=== PATIENT | male | born 1950 | race Caucasian/White ===

== ENCOUNTER 2022-05-04 18:54 | Emergency (ER) | payer MEDICARE, BC ==
[2022-05-04] MEDS ORDERED: Sodium Chloride 0.9% 1,000 ML IV SCH (19:15)
[2022-05-04 19:38] LABS: ESTIMATED GFR 72 mL/min (>60)
[2022-05-05] MEDS ORDERED: Potassium Chloride 20 MEQ Tab.ER PO ONE (02:19)
== END 2022-05-05 02:33 | disposition home or self-care (01) ==
LOC: JD.ED 18:54
DX: F10.929 Alcohol use, unspecified with intoxication, unspecified (principal); S00.01XA Abrasion of scalp, initial encounter; E87.6 Hypokalemia; I45.10 Unspecified right bundle-branch block; R00.1 Bradycardia, unspecified; I10 Essential (primary) hypertension; E66.9 Obesity, unspecified; Z88.0 Allergy status to penicillin; W10.9XXA Fall (on) (from) unspecified stairs and steps, initial encounter
CPT/HCPCS: 36415; 70450; 71260; 72125; 74177; 80053; 80306; 80307; 83735; 85025; 85610; 85730; 93005; 96360; 96361; 99285; A9270; J7030; U0002

== ENCOUNTER 2024-11-13 19:16 | Emergency (ER) | payer MEDICARE | END 2024-11-13 21:50 | disposition home or self-care (01) | LOC: JD.ED 19:16 | DX: M25.561 Pain in right knee (principal); I10 Essential (primary) hypertension; E66.9 Obesity, unspecified; Z88.0 Allergy status to penicillin; Z86.16 Personal history of COVID-19; X58.XXXA Exposure to other specified factors, initial encounter; Z68.34 Body mass index [BMI] 34.0-34.9, adult | CPT/HCPCS: 93971-26-RT; 93971-RT; 99283 ==